=== PATIENT | female | born 1960 | race Caucasian/White ===

== ENCOUNTER 2017-08-12 12:56 | Observation (INO) ==
[2017-08-12] MEDS ORDERED: *HR* OxyCODONE Immed Rel 5 MG TABLET PO ONE (13:35)
[2017-08-12] MEDS ORDERED: *HR* OxyCODONE Immed Rel 5 MG TABLET PO PRN ×2 (15:37→20:43)
[2017-08-12] MEDS ORDERED: Ringers Solution, Lactated 1,000 ML IVC SCH ×3 (15:45→20:43)
--- NOTE | 2017-08-12 15:55 | General Surg History&Physical ---
Date of Encounter: 08/12/17 Time of Encounter: 15:10 History of Present Illness Chief complaint: Abdominal pain, incarcerated ventral incisional hernia HPI: Ms. Aldridge is a 57 year old female, transferred from [facility] after presenting to the emergency department with increased epigastric abdominal pain with an increased subcutaneous mass. This mass is incarcerated hernia related to previous cholecystectomy completed in 1997. Patient describes sudden enlargement of the subcutaneous mass over the last 2 days with increasing pain. There is been no fevers, chills, nausea, or vomiting. The hernia was not reducible in the emergency department prompting surgical referral and subsequent transfer to [facility]. Past medical history: No significant medical history; today the patient has been hypertensive but this is likely due to pain of the hernia and anxiety Scoliosis right-sided kyphosis Surgical history: Cholecystectomy, 1997; Allergies: No known drug allergies Medications: Patient takes no medications at home Social history: G1, P1; Patient admits to daily smoking; one a half packs per day for the last 30 years though recently she has reduced her intake to half a pack daily. The patient denies any alcohol or illicit drug consumption. Family history noncontributory Physical examination: Age-appropriate woman resting comfortably in her ED bed. She was transferred to [facility] and evaluated in the emergency department. Prior to my arrival, the patient was medicated with 10 mg immediate release oxycodone. The patient is 1.63 m tall; 56.245 kg, BMI 21.3 The patient is afebrile, pulse 93, respirations 18, blood pressure 157/94 to 165/97; SPO2 on room air 97% Skin: Warm, no obvious jaundice Lungs: Clear bilaterally; the kyphosis is most prominent right scapular area Cardiac: Regular rate, no appreciable murmurs Abdomen: 2 cm mass, right subxiphoid area; firm, tender, not reducible. There were no intraperitoneal findings. No intra-abdominal masses. Active bowel sounds Extremities no obvious clubbing, cyanosis, or edema. Laboratories: White count 11.5, hemoglobin 15.3, hematocrit 45.0. PT INR within normal limits. Electrolytes notable for potassium of 3.3, otherwise normal electrolytes, BUN , creatinine, normal LFTs. CT abdomen/pelvis was reviewed with [facility]: Findings include bilateral fat-containing Bochdalek hernias; moderate sized hiatal hernia; evidence of previous cholecystectomy; sigmoid diverticulosis without inflammation; fat- containing hernia anterior abdominal wall with mild nonspecific induration of the mesenteric fat. Impression: Incarcerated, epigastric ventral incisional hernia. The hernia contains only fat, with no involvement of bowel or other organs were important structures. Treatment options include surgical repair now versus repair more electively in several weeks. It is also possible to defer treatment managing the acute pain over the next several days with narcotic analgesics. Risks of surgery include hemorrhage, infection, intra-abdominal abscess, injury to adjacent organs/structures, and recurrent hernia. The patient wishes to proceed with surgical repair. The use of mesh to complete this repair was discussed in detail. The use of mesh reduces the risk of recurrence but may result in chronic pain or in the event of an infection, prevent effective treatment of that infection. The patient expressed understanding and wishes to proceed with the discussed open hernia repair with mesh. Surgical consent has been obtained. Post op care will be arranged on 3A. Past Med Surg Social Fam HX - Past Medical History Medical history: no medical history Psychiatric history: no psych history - Past Surgical History Surgical History: , cholecystectomy - Social History Smoking Status: Current every day smoker Smokeless Tobacco Status: No Alcohol use: none Drug use: none Medications and Allergies No Known Home Drugs 08/12/17 [History] 3 Allergy/AdvReac Type Severity Reaction Status Date / Time No Known Allergies Allergy Verified 08/12/17 10:31 Review of Systems All systems PM: The remainder of the systems were reviewed and are negative General Surgery Exam Initial Vital Signs Pulse Resp BP Pulse Ox 93 18 165/97 96 08/12/17 13:44 08/12/17 13:44 08/12/17 13:44 08/12/17 13:44 Results - Labs All other labs normal.
[2017-08-12] MEDS ORDERED: Albuterol 2.5 MG/3 ML NEBULIZER IH ONE (16:09)
[2017-08-12] MEDS ORDERED: Bupivacaine/EPI 1:200k 0.25%PF 10 ML VIAL INFILT ONE ×2 (16:13→17:19)
--- NOTE | 2017-08-12 16:17 | Anesthesia Evaluation PreOp ---
Date of Encounter: 08/12/17 Time of Encounter: 16:11 - Past History Planned Operation: Exploratory celiotomy, poss ventral hernia repair Cardiac History: Denies any Significant Hx Pulmonary History: Smoker, Pack/yr (45) LOGISTICS RESEARCH ENGINEER History: Denies Any Significant HX Other Medical History: Denies Any Significant HX Anesthesia History: No Prior Anesthetic Complications, Past Anesthesia ( cholecystectomy, csection) Alcohol Use: none Drug use: none Medications and Allergies No Known Home Drugs 08/12/17 [History] 3 Allergy/AdvReac Type Severity Reaction Status Date / Time No Known Allergies Allergy Verified 08/12/17 10:31 - Meds/Allergy Pre-op Review Medications Reviewed: Yes Allergies Reviewed: Yes Beta Blockers on Current Med List: No Anesthesia Results - Labs Laboratory Tests 08/12/17 08/12/17 08/12/17 11:18 11:18 11:18 WBC 11.5 H Hgb 15.3 Hct 45.0 H Plt Count 264 PT 10.3 INR 1.0 APTT 31.2 Sodium 142 Potassium 3.3 L Chloride 105 Carbon Dioxide 29 BUN 10 Creatinine 0.81 Glucose 116 H Anesthesia Exam O2 Sat Height 1.63 m Weight 56.245 kg O2 Sat by Pulse Oximetry 97 O2 Sat by Pulse Oximetry 96 Vital Signs Pulse Resp BP Pulse Ox 93 18 165/97 96 08/12/17 13:44 08/12/17 13:44 08/12/17 13:44 08/12/17 13:44 - HEENT Pupil (Motor): Pupils equal, EOMI Mallampati: II Teeth: Prosthesis Denture Type: Upper: Partial Oral Opening: Greater than 3 - LOGISTICS RESEARCH ENGINEER LOC: Oriented LOGISTICS RESEARCH ENGINEER Motor: Normal RUE, Normal LUE, Normal RLE, Normal LLE, Normal Face LOGISTICS RESEARCH ENGINEER Sensory: Normal: RUE, LUE, RLE, LLE, Face - Cardiac Rhythm: Regular - Pulmonary Breath Sounds: bilateral Clear Respiratory Effort: Symmetrical Anesthesia Assess/Plan ASA Score: 2 Modified Zapata Scale for Level of Consciousness: Cooperative, oriented, and tranquil Anesthetic Plan: General Monitoring Plan: Standard Monitors Recovery Plan: PACU
[2017-08-12] MEDS ORDERED: *HR* Succinylcholine 200 MG/10 ML VIAL IVP ONE (16:29)
[2017-08-12] MEDS ORDERED: *HR* FentaNYL (PF) 100 MCG/2 ML VIAL ONE (16:29)
[2017-08-12] MEDS ORDERED: Neostigmine Methylsulfate 3 MG/3 ML SYRINGE ONE (16:29)
[2017-08-12] MEDS ORDERED: Ondansetron 4 MG/2 ML VIAL ONE (16:29)
[2017-08-12] MEDS ORDERED: *HR* Rocuronium Bromide 50 MG/5 ML VIAL ONE (16:29)
[2017-08-12] MEDS ORDERED: Dexamethasone 4 MG/ML VIAL ONE (16:29)
[2017-08-12] MEDS ORDERED: Lidocaine -MPF 2% 2 ML VIAL ONE (16:29)
[2017-08-12] MEDS ORDERED: *HR* Propofol 200 MG/20 ML VIAL IVP ONE (16:30)
[2017-08-12] MEDS ORDERED: *HR* Midazolam HCl 2 MG/2 ML VIAL ONE (16:30)
[2017-08-12] MEDS ORDERED: Lidocaine -MPF 4% 5 ML AMPUL ONE (16:32)
[2017-08-12] MEDS ORDERED: *HR* OxyCODONE/APAP 5/325 TABLET PO PRN (17:21)
[2017-08-12] MEDS ORDERED: Ketorolac 30 MG/ML VIAL ONE (17:24)
--- NOTE | 2017-08-12 17:43 | Operative Note ---
Date of procedure: 08/12/17 Pre-op diagnosis: incarcerated epigastric ventral incisional hernia Post-op diagnosis: same Procedure: Exploratory celiotomy, resection incarcerated omentum, repair vental incisional hernia with Covidien Symbotex 10 x 15 cm composite Mesh Implants: Covidien Symbotex 15 x 10 cm Composite mesh Complications: none apparent Anesthesia: GETA Local Anesthetics: 0.25% Sensorcaine HCL with Epinephrine 1:200,000 SubQ (cc) ( 30mL) Surgeon: Cristopher Davila Was there an dairy and food laboratory assistant present: No Estimated blood loss (cc): 10 IV fluids (cc): 1,000 Specimen: hernia sac and incarcerated omentum Condition: stable Disposition: PACU Procedure in Detail: Patient was brought to the operating room where she was placed supine on the operating room table. The patient was appropriately identified as to person and procedure. The accuracy of this information was confirmed by the patient and procedure team. The patient was then intubated and anesthetized under the supervision of Dr. Emely Gomez. The abdomen was prepped and draped in usual sterile fashion. Under anesthesia, abdominal examination revealed two hernias. The symptomatic hernia for which the patient presented to the ED was approx 3 cm right of midline in the subcostal incision related to the prior open cholecystectomy. The second hernia was midline with no obvious incarcerated tissue. A midline incision was planned from xiphoid to midepigastrium. The skin was infiltrated with several milliliters of 0.25% bupivacaine with 1 200, 000 epinephrine. Skin was incised with dissection extended to the fascia. Bleeding points were controlled electrocautery. The midline hernia was entered atraumatically and resected at the fascial edges. The anterior [place] wall was elevated, exposing the hernia right of midline. The omentum prolapsing through the defect, was extracted. The tip of this omentum was hemorrhagic consistent with early ischemic findings. This portion of the omentum was resected by applying curved hemostats excising the hemorrhagic portion and ligating with interrupted 3-0 silk. The fascial defect to the right of midline measuring approximately 1 cm in diameter. The midline hernia measured approximately 3 cm in diameter. Donation of the rest the abdominal wall demonstrated no other fascial defects. I selected a Covidien Symbotex 15 x 10 cm skirted composite hernia patch to complete the repair. This hernia patch was placed subfascially with the cephalad edge near the costal margin. The skirted edges were secured to the anterior abdominal wall with Absorbatacks. Additional bupivacaine with epinephrine was infiltrated into the fascia of the anterior abdominal wall. The midline incision was then closed with interrupted [id number] 0 Vicryl and infiltrated with the bupivacaine with epinephrine solution. Subcutaneous tissue was approximated with running 3-0 Vicryl. The skin edges were approximated with subcuticular 4-0 Vicryl after infiltrating the skin edges with the bupivacaine with epinephrine solution. The incision was sealed with Dermabond dermal adhesive. The patient was taken to recovery in stable condition. Needle, sponge, and instrument counts were correct at the close of the case.
[2017-08-12] MEDS: MORPHINE SUL Oral CONC 10 MG/0.5 ML ORAL.SYG SL PRN ×2 (18:00→18:10)
[2017-08-12] MEDS ORDERED: *HR* HYDROmorphone (PF) 1 MG/ML SYRINGE IVP PRN (18:13)
--- NOTE | 2017-08-12 18:45 | Anesthesia Evaluation Post Op ---
Date of Encounter: 08/12/17 Time of Encounter: 18:43 - Vital Signs Vital Signs: Vital Signs/O2 Sat, Most Current Temp Pulse Resp BP Pulse Ox 97.9 F 79 16 131/75 96 08/12/17 18:16 08/12/17 18:26 08/12/17 18:26 08/12/17 18:26 08/12/17 18:26 - Lungs Lungs: Clear Ascult./Percussion - Airway Airway: Non-obstructed - Cardiovascular Regular Rate - Mental Status Mental Status: Alert & Oriented, Answers Appropriately - Pain Pain Scale used: Numeric (1 - 10) (tolerable) - Nausea Vomiting Nausea Vomiting: Not Present - Hydration Hydration: NPO - Discharge PostOp Status: Transfer Patient to floor
[2017-08-12] MEDS ORDERED: Acetaminophen 325 MG TABLET PO PRN (20:43)
[2017-08-12] MEDS: *HR* OxyCODONE/APAP 5/325 TABLET PO PRN (21:01)
[2017-08-13 05:17] LABS: Basophils % 0.2 %; Hematocrit 39.2 % (35.3-44.9); Hemoglobin 13.1 g/dL (11.5-15.4); Immature Granulocytes % 0.5 % (0-4); Lymphocytes # 1.2 K/mcL (0.6-4.6); Lymphocytes % 9.3 %; Mean Corpuscular HGB Conc 33.4 g/dL (31.6-35.5); Mean Corpuscular Hemoglobin 31.8 pg (28.0-33.3); Mean Corpuscular Volume 95.1 fL (83.0-100.0); Mean Platelet Volume 9.7 fL (9.4-12.4); Monocytes # 0.7 K/mcL (0.0-1.3); Monocytes % 5.2 %; Neutrophils # 11.2 K/mcL (1.6-8.9); Platelet Count 240 K/mcL (140-400); Red Blood Count 4.12 M/mcL (3.82-4.97); Red Cell Distribution Width 12.6 % (11.5-14.5); Segmented Neutrophils % 84.8 %
[2017-08-13 10:22] VITALS: BP 146/78
[2017-08-13] MEDS: *HR* OxyCODONE/APAP 5/325 TABLET PO PRN (10:33)
[2017-08-13] MEDS ORDERED: Mag Hydrox/Al Hydrox/Simeth 30 ML UDC PO ONE (12:09)
--- NOTE | 2017-08-13 12:13 | General Surgery Progress Note ---
Date of Encounter: 08/13/17 Time of Encounter: 12:05 Subjective Narrative: General Surgery - POD #1 Patient afebrile, hemodynamically stable - pulse 8791, respiratory 16, blood pressure 122/68 to 146/78 Patient complaining of incisional pain but no nausea or vomiting. Tolerating diet Lungs: Clear; acceptable inspiratory effort Cardiac: Regular rate, no appreciable murmurs Abdomen: Soft with active bowel sounds; incisional and right upper quadrant tenderness consistent with the intraoperative findings of 2 hernias - One in the midline and one 3 cm right of midline subcostal anterior abdominal wall. Minimal ecchymoses noted related to infiltration of the surgical site with local anesthetic Postoperative labs - white count 13.2, likely response to surgery and is expected to resolve without intervention Hypokalemia noted on transfer from [facility], potassium 4.0 Impression: Postoperative day 1, status post open repair ventral incisional incarcerated hernia with mesh Postoperative incisional pain otherwise patient doing well Plan: Discharge home; follow-up as outpatient approximately one week Objective Vital Signs - Last 8 Hours Temp Pulse Resp BP Pulse Ox 08/13/17 10:16 98.6 F 91 16 146/78 91 08/13/17 07:04 99.4 F 87 16 122/68 94 Intake and Output 08/12/17 08/13/17 08/13/17 23:59 07:59 15:59 Intake Total 120 / 120 700 / 700 470 / 470 Output Total 100 / 100 0 / 0 Balance 110 / 110 600 / 600 470 / 470 Intake: Oral 120 / 120 700 / 700 470 / 470 Output: Urine 100 / 100 0 / 0 Estimated Blood Loss Other: Meal Breakfast Percent of Meal Consumed 5% # Voids 1 - Labs 08/13/17 04:35 08/13/17 04:35 Diabetes panel 08/13/17 Range/Units 04:35 Potassium 4.0 (3.5-5.1) mEq/L Pituitary panel 08/13/17 Range/Units 04:35 Potassium 4.0 (3.5-5.1) mEq/L Adrenal panel 08/13/17 Range/Units 04:35 Potassium 4.0 (3.5-5.1) mEq/L - VTE Documentation of Mechanical Device: Intermittent pneumatic compression device Consult Discharge Plan - Plan Referrals: Cristopher Davila MD [Non-Partnered Physician] - 08/21/17 2:20 pm
--- NOTE | 2017-08-13 12:17 | Discharge Summary ---
Outpatient Proc Discharge Plan - Plan Additional Instructions: Patient may consume a regular diet Activity as tolerated; lifting limited to less than 20 pounds Patient may shower, wash incision with soap and water Tylenol, ibuprofen, Motrin, Advil, etc. as needed for pain Prescription for Percocet 5/325, #16, one every 6 hours as needed for pain not relieved by [id number] medications Follow-up my office, 08/21/17. Please call office to make his outpatient appointment Prescriptions: OxyCODONE/APAP 5/325 [Percocet 5/325 MG] 1 each PO Q6HR PRN 4 Days #16 tablet PRN Reason: Pain Home Medications: Acetaminophen [Tylenol] 650 mg PO Q6HR PRN tablet 08/13/17 [Rx] OxyCODONE/APAP 5/325 [Percocet 5/325 MG] 1 each PO Q6HR PRN 4 Days #16 tablet [Rx]
== END 2017-08-13 14:20 | disposition home or self-care (01) ==
LOC: 2SOUTHHOLD → 3ANU 17:02
PROVIDERS: ADMIT Surgery; ATTEND Surgery

== ENCOUNTER 2018-07-13 13:48 | Inpatient (IN) ==
[2018-07-13] MEDS ORDERED: Ondansetron 4 MG/2 ML VIAL IVP PRN (16:07)
[2018-07-13] MEDS ORDERED: Ringers Solution, Lactated 1,000 ML IVC SCH (16:30)
[2018-07-13] MEDS ORDERED: 0.9 % Sodium Chloride 1,000 ML IVC ONE (16:30)
[2018-07-13] MEDS ORDERED: Ringers Solution, Lactated 2,000 ML IVC SCH (16:47)
--- NOTE | 2018-07-13 16:48 | Internal Med History&Physical ---
Date of Encounter: 07/13/18 Time of Encounter: 16:46 Internal Medicine - H&P: HPI Chief complaint: Nausea, vomiting Admitted From: Home Plans for Post Hospital Care: Home History of present illness: Ms. Aldridge is a 58 year old female no significant past medical history except scoliosis since last 20-30 years, abdominal hernia who received treatment with prednisone for back pain and thought she had reaction to prednisone after using it for 5 days and to ER with complaint of nausea and vomiting. She has been vomiting since past 4 days and had innumerable episodes of vomiting. Denied any bloody vomitus, was brownish in color. Could not tolerate anything by mouth since Thursday. Denied any fever or abdominal pain. Denies any urinary difficulties, but noted had decreased urine output. She has not had bowel move ment or passed gas since last 3 days. Patient was evaluated at [facility] and was found to have leukocytosis, SHADI and small bowel obstruction from a right inguinal hernia. Patient was subsequently transferred to [facility] for further management. Patient received a dose of Zosyn and 1 L of normal saline. Patient had an NG tube placed as well. Patient was seen and examined on the floor. Denied any abdominal pain, fever. Without significant nausea but discomfort due to NG tube. Currently NG tube not attached to suction. A bone mention history was corroborated. Denies any chest pain or shortness of breath. Patient denies any cardiac history or history of any kidney stones or other problems. Denies history of diabetes blood pressure. She does continue to smoke half a pack a day. Denies any allergies except nausea to oxycodone and hydrocodone. Past Med Surg Social Fam HX - Past Medical History Medical history: no medical history Psychiatric history: no psych history - Past Surgical History Surgical History: , cholecystectomy - Social History Smoking Status: Current every day smoker Smokeless Tobacco Status: No Alcohol use: none Drug use: none - Additional Family History Additional family history: No known medical history except father with skin cancer Internal Medicine - H&P: Meds No Known Home Drugs 07/13/18 [History] Allergy/AdvReac Type Severity Reaction Status Date / Time No Known Allergies Allergy Verified 08/12/17 10:31 All Systems PM: A 10-system review of systems was performed and is negative for pertinent findings except as documented above in the HPI. - Constitutional Exam: Constitutional: Vitals as noted. Conversant. No Apparent Distress. Has NG tube. Eyes : Sclera white, conjunctiva clear, no lid lag, PEARLA. ENT : Grossly normal hearing. Oropharyngeal exam unremarkable. dry mucus membranes. Respiratory : Clear to auscultation bilaterally except for occasional rhonchi. No accessory muscle use, rales, rhonchi or wheezes Cardiovascular : tachycardic, +S1, +S2. no murmur, gallop, rubs. No chest wall tenderness GI/Abdominal : Soft, Non-tender, mildly distended, increased bowel sounds, soft, no peritoneal signs. incisional hernia noted above umbilicus. Rt sided inguinal hernia noted. Not painful. Musculoskeletal: Has scoliosis, no edema or cyanosis. no calf tenderness. Neurological: AO X3, CN II-XII grossly intact, grossly normal motor and sensory exam. Skin: No skin rash, lesions or ulcers noted. Pych: Good insight and judgement. Intact memory. AOx3. Internal Med - H&P Results - EKG Data -: EKG Interpreted by Myself EKG shows normal: sinus rhythm Rate: tachycardia - EKG Data Prior EKG available for review: yes When compared to previous EKG: there is no significant change - Assessment and Plan (1) Small bowel obstruction Current Visit: No Status: Acute Assessment and plan: Small bowel obstruction likely secondary to incarceration from right inguinal hernia Surgery was consulted. Inguinal hernia was reduced by Dr. hall at bedside. NG tube was removed We will continue to observe patient and keep patient nothing by mouth We will continue to keep patient on IV fluids. We will give 1.5 L bolus of normal saline and continue lactated Ringer's after. Will repeat labs. Patient is started on Zosyn however if labs are improving within stop Zosyn. (2) SHADI (acute kidney injury) Current Visit: Yes Status: Acute Assessment and plan: Most likely secondary to fluid loss from innumerable episodes of vomiting Patient clinically dehydrated as well We will keep patient on IV fluids with 1.5 L bolus and LR after Zofran for nausea, vomiting Strict I/O and avoid nephrotoxic medications including NSAIDS. Will use IV tylenol if significant pain. (3) Leukocytosis Current Visit: Yes Status: Acute Assessment and plan: Possibly reactive from SBO as well as with recent steroid use However will continue Zosyn and follow up repeat labs If patient remains afebrile and has significant improvement in her labs we will stop Zosyn Qualifiers: Leukocytosis type: unspecified Qualified Code(s): D72.829 - Elevated white blood cell count, unspecified (4) Hypokalemia Current Visit: Yes Status: Acute Assessment and plan: Likely related to vomiting along with hyponatremia and hypercalcemia We will replete potassium and continue IV fluids Hyperkalemia likely related to dehydration. (5) Hypercalcemia Current Visit: Yes Status: Acute (6) Hyponatremia Current Visit: Yes Status: Acute - Time Spent With Patient Total time spent is greater than 50% in coordination of care (as documented) at patient's floor/unit and/or counseling patient:
[2018-07-13] MEDS ORDERED: 0.9 % Sodium Chloride 500 ML IVC ONE (17:16)
[2018-07-13 17:26] LABS: Calcium 10.1 mg/dL (8.6-10.3); Potassium 3.7 mEq/L (3.5-5.1)
--- NOTE | 2018-07-13 17:55 | General Surgery Consult Note ---
Date of Encounter: 07/13/18 Time of Encounter: 17:00 History of Present Illness Consult date: 07/13/18 Requesting physician: Shweta David History of present illness: 58-year-old female transferred from [facility] after presenting there with a 3 day history of nausea, vomiting, and constipation. Last reported bowel movement was 3 days ago. The patient presents with concern that she is experiencing an allergic reaction to recently prescribed steroids. She is unable to keep any fluids down. Labs demonstrated a white count of 23.3 with hemoglobin 17.6, hematocrit 49.9; differential with 20.[address] abdomen and pelvis demonstrated dilated proximal loops small bowel with decompression of the more distal loops. A small right inguinal hernia appeared to be the site of the SBO. There is also a ventral incisional hernia in the upper/subxiphoid anterior abdominal wall. The patient was transferred to [facility] for further evaluation and care. Past medical history: Is fairly unremarkable except for recent steroid therapy for back pain. Surgical history: Cholecystectomy, 1997; ; exploratory celiotomy, resection of incarcerated omentum and repair of ventral incisional hernia using Covidien 10 x 15 cm composite mesh, 08/12/17. Allergies: No known drug allergies, however, patient believed her symptoms were due to an allergic response to steroids (prednisone) Medications: The patient recently completed a course of prednisone; does not take routine home meds Social history: Patient is G1, P1; she continues to smoke admitting to half a pack daily for the last 30 years. The patient denies any alcohol or illicit drug use. Family history: Noncontributory Physical examination: 58-year-old, who appears to be older than her stated age, in no acute distress. She denies abdominal pain. NG tube had been placed, scant bilious fluid is noted in the reservoir The patient has been afebrile, 98.3; pulse 102-112, respirations 18-19; blood pressure on arrival [facility], 116/80. Skin: Warm without obvious jaundice Lungs: Clear bilaterally significant kyphoscoliosis noted Cardiac: Rapid rate without detected murmurs Abdomen: Soft, nontender. Active bowel sounds. A soft, nontender, reducible ventral incisional hernia evident subxiphoid anterior abdominal wall, at the cephalad pole of a midline incision. The remainder of the midline incision appears intact with no detected fascial defects. No intra-abdominal masses. No rebound. A nontender hard nodular density right groin, lateral to the pubic tubercle. With manipulation this was reduced without significant difficulty or discomfort on the patient's part. Bowel sounds were active. Extremities: No obvious clubbing, cyanosis, or edema. Laboratories: WBC 23.3, possibly due to steroids as well as significant dehydration evidenced by hemoconcentration (hemoglobin 17.6, hematocrit 49.9). Sodium 132, potassium 3.4, chloride 74, BUN 76, creatinine 2.68 (in August 2017, BUN was 10, creatinine 0.81) Lactic acid 1.8; LFTs within normal limits; calcium 10.8 - again likely reflective of the significant dehydration Urinalysis notable for specific gravity greater than 1.030, pH 5.0; protein 100, ketones 15; 0-3 RBC/hpf; 3-5 WBC/hpf CT: Reviewed with [place] [facility] Impression: 58-year-old, approximately 1 year status post exploratory celiotomy with resection of incarcerated omentum and repair of ventral incisional hernia using Covidien 10 x 15 cm composite mesh, transferred to [facility] for evaluation and treatment of a small bowel obstruction secondary to an incarcerated right inguinal hernia. I was able to reduce this hernia by manual manipulation. The patient is markedly dehydrated with significant electrolyte abnormalities. Recommendations: Discontinue NG Maintain NPO except for meds with sips water - diet in AM if no further N/V aggressive rehydration and correction electrolyte abnormalities once medically stable; surgical repair right inguinal hernia Thank you for this consultation. I will follow along with you. Past Med Surg Social Fam HX - Past Medical History Medical history: no medical history Psychiatric history: no psych history - Past Surgical History Surgical History: , cholecystectomy - Social History Smoking Status: Current every day smoker Packs per day: 0.5 Smokeless Tobacco Status: No Alcohol use: none Drug use: none Medications and Allergies No Known Home Drugs 07/13/18 [History] Allergy/AdvReac Type Severity Reaction Status Date / Time No Known Allergies Allergy Verified 08/12/17 10:31 Review of Systems All systems PM: The remainder of the systems were reviewed and are negative General Surgery Exam Initial Vital Signs Temp Pulse Resp BP Pulse Ox 98.3 F 112 19 116/80 90 07/13/18 17:00 07/13/18 17:00 07/13/18 17:00 07/13/18 17:00 07/13/18 17:00 Exam Initial Vital Signs Temp Pulse Resp BP Pulse Ox 98.3 F 112 19 116/80 90 07/13/18 17:00 07/13/18 17:00 07/13/18 17:00 07/13/18 17:00 07/13/18 17:00 Results - Labs 07/13/18 16:53 Abnormal lab results Chloride 80 mEq/L (98-107) L 07/13/18 16:53 Carbon Dioxide 40 mEq/L (23-29) H* 07/13/18 16:53 BUN 88 mg/dL (6-20) H 07/13/18 16:53 Creatinine 2.49 mg/dL (0.60-1.20) H 07/13/18 16:53 Est GFR ( Amer) 24 (> 60) L 07/13/18 16:53 Est GFR (Non-Af Amer) 20 (> 60) L 07/13/18 16:53 BUN/Creatinine Ratio 35 (6-26) H 07/13/18 16:53 Glucose 177 mg/dL (70-105) H 07/13/18 16:53 Calculated Osmolality 313 (280-300) H 07/13/18 16:53 Diabetes panel 07/13/18 Range/Units 16:53 Sodium 136 (136-145) mEq/L Potassium 3.7 (3.5-5.1) mEq/L Chloride 80 L (98-107) mEq/L Carbon Dioxide 40 H* (23-29) mEq/L BUN 88 H (6-20) mg/dL Creatinine 2.49 H (0.60-1.20) mg/dL Glucose 177 H (70-105) mg/dL Calcium 10.1 (8.6-10.3) mg/dL Calcium panel 07/13/18 Range/Units 16:53 Calcium 10.1 (8.6-10.3) mg/dL Pituitary panel 07/13/18 Range/Units 16:53 Sodium 136 (136-145) mEq/L Potassium 3.7 (3.5-5.1) mEq/L Chloride 80 L (98-107) mEq/L Carbon Dioxide 40 H* (23-29) mEq/L BUN 88 H (6-20) mg/dL Creatinine 2.49 H (0.60-1.20) mg/dL Glucose 177 H (70-105) mg/dL Calcium 10.1 (8.6-10.3) mg/dL Adrenal panel 07/13/18 Range/Units 16:53 Sodium 136 (136-145) mEq/L Potassium 3.7 (3.5-5.1) mEq/L Chloride 80 L (98-107) mEq/L Carbon Dioxide 40 H* (23-29) mEq/L BUN 88 H (6-20) mg/dL Creatinine 2.49 H (0.60-1.20) mg/dL Glucose 177 H (70-105) mg/dL Calcium 10.1 (8.6-10.3) mg/dL All other labs normal. Consult Discharge Plan - Plan Referrals: NONE,PCP [Primary Care Provider] -
[2018-07-13] MEDS: Nicotine 7 MG PATCH.TD24 TD SCH (18:23)
[2018-07-13 18:34] LABS: Basophils % 0.1 %; Eosinophils % 0.1 %; Hematocrit 42.5 % (35.3-44.9); Hemoglobin 14.3 g/dL (11.5-15.4); Immature Granulocytes % 0.3 % (0-4); Lymphocytes # 0.5 K/mcL (0.6-4.6); Lymphocytes % 3.3 %; Mean Corpuscular HGB Conc 33.6 g/dL (31.6-35.5); Mean Corpuscular Hemoglobin 31.2 pg (28.0-33.3); Mean Corpuscular Volume 92.8 fL (83.0-100.0); Mean Platelet Volume 9.7 fL (9.4-12.4); Monocytes # 1.6 K/mcL (0.0-1.3); Platelet Count 326 K/mcL (140-400); Red Blood Count 4.58 M/mcL (3.82-4.97); Red Cell Distribution Width 12.6 % (11.5-14.5); Segmented Neutrophils % 86.2 %
[2018-07-13] MEDS: Ringers Solution, Lactated 2,000 ML IVC SCH (19:50)
[2018-07-14] MEDS: Piperacillin/Tazobactam 3.375 GM in 0.9 % Sodium Chloride Mini Bag 100 ML IVPB SCH ×3 (01:01→16:14)
[2018-07-14 08:02] LABS: Basophils % 0.1 %; Eosinophils # 0.1 K/mcL (0.0-0.6); Eosinophils % 1.2 %; Hematocrit 38.1 % (35.3-44.9); Hemoglobin 12.8 g/dL (11.5-15.4); Immature Granulocytes % 0.4 % (0-4); Lymphocytes # 1.1 K/mcL (0.6-4.6); Lymphocytes % 11.4 %; Mean Corpuscular HGB Conc 33.6 g/dL (31.6-35.5); Mean Corpuscular Hemoglobin 31.5 pg (28.0-33.3); Mean Corpuscular Volume 93.8 fL (83.0-100.0); Mean Platelet Volume 9.4 fL (9.4-12.4); Monocytes % 9.6 %; Neutrophils # 7.8 K/mcL (1.6-8.9); Platelet Count 257 K/mcL (140-400); Red Blood Count 4.06 M/mcL (3.82-4.97); Red Cell Distribution Width 12.8 % (11.5-14.5); Segmented Neutrophils % 77.3 %
--- NOTE | 2018-07-14 08:15 | Internal Med Progress Note ---
<Obi Barr - Last Filed: 07/14/18 14:26> Hospitalist Progress Note - Encounter Date of Encounter: 07/14/18 Time of Encounter: 10:00 - Subjective Interval History: No acute events overnight. Patient's right inguinal hernia was reduced by surgery. NG tube was removed. Patient is tolerating her clear liquid diet. Sh micah reports having 4 bowel movements in the past 24 hours. Patient also is seen having 4 L oxygen. She is not on oxygen at home. She reports having a lot of cough and sputum production before admission. She has been afebrile and her leukocytosis has resolved. - Exam Vitals: Temp Pulse Resp BP Pulse Ox 98.6 F 94 14 116/72 88 07/14/18 07:08 07/14/18 07:08 07/14/18 07:08 07/14/18 07:08 07/14/18 07:08 Exam: General: pleasant, without distress HEENT: Head atraumatic, normocephalic, EOMI, PERRL, absent ear discharge or trauma, Moist Mucous Membranes, uvula midline Neck: nontender to palpation, absent lymphadenopathy, Cardiovascualr: Regular rate and rhythm with no murmur, absent gallops or rubs, absent pedal edema, radial pulses 2 out of 4 Lungs: Clear to auscultation bilaterally, not in respiratory distress Abdomen: Soft nontender, nondistended positive bowel sounds, absent hepatomegaly. Right inguinal hernia, mid abdominal hernia Skin: warm and dry, absent rash, absent open wounds and nodules MSK: absent clubbing, cyanosis, joints without swelling Neuro: Alert oriented 3, no focal deficits Psych: good insight and judgment, - Assessment and Plan (1) Acute respiratory failure with hypoxia Current Visit: Yes Status: Acute Assessment and Plan: Patient is requiring 4 L oxygenation Unclear etiology. may have aspiration pna 2nd to vomiting She does not have a history of COPD, Or CHF. She is euvolemic on exam Chest x-ray within normal limits on admission. We will obtain a CTA of the chest On admission patient was on Zosyn will continue Blood cultures taken on admission are pending. Respiratory infectious panel, urine Legionella and Streptococcus pneumoniae antigens, (2) Small bowel obstruction Current Visit: Yes Status: Resolved Assessment and Plan: Resolved Secondary to incarcerated right inguinal hernia as seen on CT abdomen pelvis Continue clear liquid diets and will advance diet as tolerated. We will continue IV fluids as patient's by mouth intake is still poor Continue Zofran for nausea. Appreciate surgery recommendations. Plan for surgical repair once medically stable. (3) SHADI (acute kidney injury) Current Visit: Yes Status: Resolved Assessment and Plan: Resolved. Continue monitor. (4) Hypokalemia Current Visit: Yes Status: Resolved Assessment and Plan: Resolved - Time Spent with Patient Total time spent is greater than 50% in coordination of care (as documented) at patient's floor/unit and/or counseling patient: Internal Medicine: Result - Labs CBC & Chem 7: 07/14/18 04:00 07/14/18 04:00 Labs: Short CBC 07/13/18 07/14/18 Range/Units 18:01 04:00 WBC 16.2 H 10.0 (4.3-11.1) K/mcL Hgb 14.3 D 12.8 D (11.5-15.4) g/dL Hct 42.5 38.1 (35.3-44.9) % Plt Count 326 257 (140-400) K/mcL Neutrophils # 14.0 H 7.8 (1.6-8.9) K/mcL BMP 07/13/18 16:53 Sodium 136 Potassium 3.7 Chloride 80 L Carbon Dioxide 40 H* BUN 88 H Creatinine 2.49 H Glucose 177 H Calcium 10.1 Consult Discharge Plan - Plan Referrals: Rhett Parekh MD [Partnered Physician] - <Derek Benton - Last Filed: 07/14/18 15:51> Hospitalist Progress Note - Encounter Date of Encounter: 07/14/18 - Exam Vitals: Temp Pulse Resp BP Pulse Ox 98.7 F 89 15 133/83 90 07/14/18 14:52 07/14/18 14:52 07/14/18 14:52 07/14/18 14:52 07/14/18 14:52 - Assessment and Plan (1) Small bowel obstruction Current Visit: Yes Status: Resolved (2) SHADI (acute kidney injury) Current Visit: Yes Status: Resolved (3) Leukocytosis Current Visit: Yes Status: Acute (4) Hypokalemia Current Visit: Yes Status: Resolved (5) Hypercalcemia Current Visit: Yes Status: Acute (6) Hyponatremia Current Visit: Yes Status: Acute - Time Spent with Patient Total time spent is greater than 50% in coordination of care (as documented) at patient's floor/unit and/or counseling patient: Internal Medicine: Result - Labs CBC & Chem 7: 07/14/18 04:00 07/14/18 04:00 Labs: Short CBC 07/13/18 07/14/18 Range/Units 18:01 04:00 WBC 16.2 H 10.0 (4.3-11.1) K/mcL Hgb 14.3 D 12.8 D (11.5-15.4) g/dL Hct 42.5 38.1 (35.3-44.9) % Plt Count 326 257 (140-400) K/mcL Neutrophils # 14.0 H 7.8 (1.6-8.9) K/mcL BMP 07/13/18 07/14/18 16:53 04:00 Sodium 136 137 Potassium 3.7 3.5 Chloride 80 L 96 L Carbon Dioxide 40 H* 34 H BUN 88 H 51 H Creatinine 2.49 H 1.06 Glucose 177 H 106 H Calcium 10.1 8.4 L - Impressions Impressions Chest CTA 07/14/18 14:35 IMPRESSION: 1. No evidence of acute pulmonary embolism centrally or peripherally. 2. Bilateral lower lobe atelectatic changes. 3. Significant emphysema worse in the upper lobes. 4. Severe scoliotic deformity. 5. Moderate hiatal hernia. D/ / 07/14/2018 15:40:16 Eli Hairston MD / daylin Interpreting Provider: Eli Hairston MD - Attending Attestation I have seen and independently assessed this patient and I agree with plan as documented above Plan Acute hypoxic respiratory failure. Unclear etiology. patient does not wear oxygen at home and has been needing up to 4L of oxygen here. CXR was uremarkab le. Obtain CTA chest to r/o acute PE Smal bowel obstruction. s/p manula reduction of inguinal hernia. Diet advanced to clear liquids. Further surgical intervention per surgery <Derek Benton - Last Filed: 07/14/18 15:51> (3) Leukocytosis Qualifiers: Leukocytosis type: unspecified Qualified Code(s): D72.829 - Elevated white blood cell count, unspecified
[2018-07-14 08:23] LABS: BUN/Creatinine Ratio 48 (6-26); Blood Urea Nitrogen 51 mg/dL (6-20); Calcium 8.4 mg/dL (8.6-10.3); Carbon Dioxide 34 mEq/L (23-29); Chloride 96 mEq/L (98-107); Glucose 106 mg/dL (70-105); Osmolality,Calculated 298 (280-300); Potassium 3.5 mEq/L (3.5-5.1); Sodium 137 mEq/L (136-145); eGFR For Non-African Americans 53 (> 60)
[2018-07-14] MEDS: Nicotine 7 MG PATCH.TD24 TD SCH (09:25)
[2018-07-14] MEDS: Pantoprazole 40 MG VIAL IVP SCH (11:15)
[2018-07-14] MEDS ORDERED: Isovue-370 500 ML BOTTLE IVP ONE (14:35)
[2018-07-14 17:25] LABS: Adenovirus Not Detected (Not Detect); Bordetella Pertussis Not Detected (Not Detect); Chlamydophila pneumoniae Not Detected (Not Detect); Coronavirus 229E Not Detected (Not Detect); Coronavirus HKU1 Not Detected (Not Detect); Coronavirus NL63 Not Detected (Not Detect); Coronavirus OC43 Not Detected (Not Detect); Human Metapneumovirus Not Detected (Not Detect); Human Rhinovirus/Enterovirus Not Detected (Not Detect); Influenza A Subtype 2009 H1 Not Detected (Not Detect); Influenza A Untypeable Not Detected (Not Detect); Influenza B Not Detected (Not Detect); Mycoplasma pneumoniae Not Detected (Not Detect); Parainfluenza Virus 1 Not Detected (Not Detect); Parainfluenza Virus 2 Not Detected (Not Detect); Parainfluenza Virus 3 Not Detected (Not Detect); Parainfluenza Virus 4 Not Detected (Not Detect); Respiratory Syncytial Virus Not Detected (Not Detect)
--- NOTE | 2018-07-14 17:44 | General Surgery Progress Note ---
Date of Encounter: 07/14/18 Time of Encounter: 17:33 Subjective Patient reports: feels better, flatus, diarrhea Narrative: General Surgery Patient feeling much improved; no further nausea or vomiting. Patient afebrile, 98.7, pulse 89-92 and regular; RR14-15; BP 133/83 O2 saturations reported approximately 96 when patient is off O2. History of significant tobacco use and kyphosis a likely source for this hypoxia Abdomen: Soft, nontender. Reducible, nontender epigastric ventral incisional hernia at the cephalad pole of the midline incision. Right inguinal hernia is nontender without recurrent prolapse tissue/incarcerated hernia Active bowel sounds. Patient tolerating diet, describes passing copious flatus and is experiencing diarrhea. Clinically the bowel obstruction is resolved Laboratories: Leukocytosis has resolved, currently 10.0. Neutrophils are returned to normal. Hemoglobin 12.8, hematocrit 38.1 reflecting rehydration. Electrolytes notable for potassium borderline at 3.5. Bicarbonate is elevated at 34, BUN has improved from 88 to 51; Cr 2.49 improved to 1.06 Impression: Small bowel obstruction secondary to incarcerated right inguinal hernia. Resolved with reduction of the carcinoid tissue. Severe dehydration secondary to the small bowel obstruction with several days nausea vomiting. - Significantly improve with resolution of the nausea vomiting and rehydration Newly diagnosed hypoxia likely emphysema/COPD. Discussed briefly with Dr. Benton Stable ventral incisional hernia epigastric anterior abdominal wall. Recommendations: Continue IV fluids Advance diet Discontinue antibiotics. Objective Vital Signs - Last 8 Hours Temp Pulse Resp BP Pulse Ox 07/14/18 14:52 98.7 F 89 15 133/83 90 07/14/18 11:13 98.9 F 92 14 143/86 91 Intake and Output 07/14/18 07/14/18 07/14/18 07:59 15:59 23:59 Intake Total 100 / 100 100 / 100 Output Total 1300 / 1300 550 / 550 Balance -1200 / -1200 -450 / -450 Intake: IV Fluids 100 / 100 100 / 100 Zosyn 3.375 GM In 0.9 % Sodium 100 / 100 100 / 100 Chloride (Mini-Bag +) 100 ML @ 25 mls/hr IVPB Q8HR DEANGELO Rx#: [id number] Output: Catheter 1300 / 1300 550 / 550 Other: # Bowel Movements 2 Weight 54.5 kg Blood Glucose* 104 Patient Weight 07/14/18 23:59 Weight 54.5 kg - Labs 07/14/18 04:00 07/14/18 04:00 Diabetes panel 07/14/18 Range/Units 04:00 Sodium 137 (136-145) mEq/L Potassium 3.5 (3.5-5.1) mEq/L Chloride 96 L (98-107) mEq/L Carbon Dioxide 34 H (23-29) mEq/L BUN 51 H (6-20) mg/dL Creatinine 1.06 (0.60-1.20) mg/dL Glucose 106 H (70-105) mg/dL Calcium 8.4 L (8.6-10.3) mg/dL Calcium panel 07/14/18 Range/Units 04:00 Calcium 8.4 L (8.6-10.3) mg/dL Pituitary panel 07/14/18 Range/Units 04:00 Sodium 137 (136-145) mEq/L Potassium 3.5 (3.5-5.1) mEq/L Chloride 96 L (98-107) mEq/L Carbon Dioxide 34 H (23-29) mEq/L BUN 51 H (6-20) mg/dL Creatinine 1.06 (0.60-1.20) mg/dL Glucose 106 H (70-105) mg/dL Calcium 8.4 L (8.6-10.3) mg/dL Adrenal panel 07/14/18 Range/Units 04:00 Sodium 137 (136-145) mEq/L Potassium 3.5 (3.5-5.1) mEq/L Chloride 96 L (98-107) mEq/L Carbon Dioxide 34 H (23-29) mEq/L BUN 51 H (6-20) mg/dL Creatinine 1.06 (0.60-1.20) mg/dL Glucose 106 H (70-105) mg/dL Calcium 8.4 L (8.6-10.3) mg/dL Consult Discharge Plan - Plan Referrals: Rhett Parekh MD [Partnered Physician] -
[2018-07-14 20:33] LABS: ABG Base Excess 7 mEq/L (-2 to 3); ABG HCO3 31 mEq/L (21-27); ABG Oxygen Saturation 98 % (95-98); ABG PCO2 45 mmHg (35-45); ABG PH 7.46 pH Units (7.32-7.45); ABG PO2 92 mmHg (85-104); ABG TCO2 33 mEq/L (20-26)
[2018-07-14] MEDS: Ringers Solution, Lactated 2,000 ML IVC SCH (22:27)
[2018-07-14] MEDS ORDERED: traMADol 50 MG TABLET PO ONE (22:41)
[2018-07-15 05:43] LABS: Basophils % 0.1 %; Eosinophils # 0.3 K/mcL (0.0-0.6); Eosinophils % 2.7 %; Hematocrit 35.2 % (35.3-44.9); Hemoglobin 11.7 g/dL (11.5-15.4); Immature Granulocytes % 0.5 % (0-4); Lymphocytes # 1.7 K/mcL (0.6-4.6); Lymphocytes % 14.3 %; Mean Corpuscular HGB Conc 33.2 g/dL (31.6-35.5); Mean Corpuscular Hemoglobin 31.7 pg (28.0-33.3); Mean Corpuscular Volume 95.4 fL (83.0-100.0); Mean Platelet Volume 9.7 fL (9.4-12.4); Monocytes % 8.9 %; Neutrophils # 8.6 K/mcL (1.6-8.9); Platelet Count 242 K/mcL (140-400); Red Blood Count 3.69 M/mcL (3.82-4.97); Red Cell Distribution Width 12.8 % (11.5-14.5); Segmented Neutrophils % 73.5 %
[2018-07-15 06:01] LABS: BUN/Creatinine Ratio 36 (6-26); Blood Urea Nitrogen 24 mg/dL (6-20); Calcium 8.3 mg/dL (8.6-10.3); Carbon Dioxide 32 mEq/L (23-29); Chloride 103 mEq/L (98-107); Glucose 99 mg/dL (70-105); Osmolality,Calculated 288 (280-300); Potassium 3.5 mEq/L (3.5-5.1); Sodium 137 mEq/L (136-145); eGFR For Non-African Americans > 60 (> 60)
[2018-07-15] MEDS: Pantoprazole 40 MG VIAL IVP SCH (09:22)
[2018-07-15] MEDS: Nicotine 7 MG PATCH.TD24 TD SCH (09:22)
--- NOTE | 2018-07-15 13:14 | General Surgery Progress Note ---
Date of Encounter: 07/15/18 Time of Encounter: 13:11 Subjective Patient reports: no new complaints, feels better Narrative: General Surgery - Patient feeling well; voicing no abdominal complaints. No recurrent abdominal pain, nausea or vomiting. Tolerating diet. Abdomen: Soft, nontender. Stable reducible nontender epigastric ventral incisional hernia. Right inguinal hernia without tenderness or recurrent prolapsing or incarcerated tissue. Patient complaining of back pain - long-standing kyphoscoliosis Impression: Small bowel obstruction secondary to incarcerated right inguinal hernia. Resolved. Stable ventral incisional hernia. New diagnosis emphysema/COPD due to prolonged history of tobacco use. Patient is a current, active smoker. Recommendations: Outpatient surgical follow-up once pulmonary status has been stabilized Objective Vital Signs - Last 8 Hours Temp Pulse Resp BP Pulse Ox 07/15/18 11:41 99.1 F 88 14 119/75 97 07/15/18 08:05 98.6 F 73 16 116/74 95 Intake and Output 07/14/18 07/15/18 07/15/18 23:59 07:59 15:59 Other: Stool Size Small Stool Consistency liquid # Voids 1 - Labs 07/15/18 05:01 07/15/18 05:01 Diabetes panel 07/15/18 Range/Units 05:01 Sodium 137 (136-145) mEq/L Potassium 3.5 (3.5-5.1) mEq/L Chloride 103 (98-107) mEq/L Carbon Dioxide 32 H (23-29) mEq/L BUN 24 H (6-20) mg/dL Creatinine 0.67 (0.60-1.20) mg/dL Glucose 99 (70-105) mg/dL Calcium 8.3 L (8.6-10.3) mg/dL Calcium panel 07/15/18 Range/Units 05:01 Calcium 8.3 L (8.6-10.3) mg/dL Pituitary panel 07/15/18 Range/Units 05:01 Sodium 137 (136-145) mEq/L Potassium 3.5 (3.5-5.1) mEq/L Chloride 103 (98-107) mEq/L Carbon Dioxide 32 H (23-29) mEq/L BUN 24 H (6-20) mg/dL Creatinine 0.67 (0.60-1.20) mg/dL Glucose 99 (70-105) mg/dL Calcium 8.3 L (8.6-10.3) mg/dL Adrenal panel 07/15/18 Range/Units 05:01 Sodium 137 (136-145) mEq/L Potassium 3.5 (3.5-5.1) mEq/L Chloride 103 (98-107) mEq/L Carbon Dioxide 32 H (23-29) mEq/L BUN 24 H (6-20) mg/dL Creatinine 0.67 (0.60-1.20) mg/dL Glucose 99 (70-105) mg/dL Calcium 8.3 L (8.6-10.3) mg/dL Consult Discharge Plan - Plan Referrals: Rhett Parekh MD [Partnered Physician] -
--- NOTE | 2018-07-15 14:00 | Internal Med Progress Note ---
<Obi Barr - Last Filed: 07/15/18 13:58> Hospitalist Progress Note - Encounter Date of Encounter: 07/15/18 Time of Encounter: 09:00 - Subjective Interval History: No acute events overnight. Patient reports she is tolerating her diet. She is continuing to require 4 L oxygen. She does report she is a chronic smoker. She denies any history of COPD, pneumonia in the past. Patient is crying in the room. She is afraid she will not be able to afford all her new medications. I discussed with patient that we will see if social work can help her with her financial issues. - Exam Vitals: Temp Pulse Resp BP Pulse Ox 99.1 F 88 14 119/75 97 07/15/18 11:41 07/15/18 11:41 07/15/18 11:41 07/15/18 11:41 07/15/18 11:41 Exam: General: pleasant, without distress Cardiovascualr: Regular rate and rhythm with no murmur, absent gallops or rubs, absent pedal edema, radial pulses 2 out of 4 Lungs: Clear to auscultation bilaterally, not in respiratory distress Abdomen: Soft nontender, nondistended positive bowel sounds, absent hepatomegaly. Right inguinal hernia, mid abdominal hernia Skin: warm and dry, absent rash, absent open wounds and nodules MSK: absent clubbing, cyanosis, joints without swelling Neuro: Alert oriented 3, no focal deficits Psych: good insight and judgment, - Assessment and Plan (1) Acute respiratory failure with hypoxia Current Visit: Yes Status: Acute Assessment and Plan: Secondary to COPD exacerbation Continue oxygen supplementation CTA showed bilateral upper lobe emphysematous changes. Patient is a chronic smoker and likely has underlying COPD that has not been diagnosed. (2) COPD exacerbation Current Visit: Yes Status: Acute Assessment and Plan: This started patient on steroids and DuoNeb's Symbicort., Plan is to wean down her oxygen level. On discharge patient will need nebulizer, Symbicort inhaler, oxygen, albuterol inhaler. (3) Small bowel obstruction Current Visit: Yes Status: Resolved Assessment and Plan: Resolved. Follow-up with surgery outpatient. Patient will have outpatient elective repair as per surgery. - Time Spent with Patient Total time spent is greater than 50% in coordination of care (as documented) at patient's floor/unit and/or counseling patient: Internal Medicine: Result - Labs CBC & Chem 7: 07/15/18 05:01 07/15/18 05:01 Labs: Short CBC 07/15/18 Range/Units 05:01 WBC 11.7 H (4.3-11.1) K/mcL Hgb 11.7 (11.5-15.4) g/dL Hct 35.2 L (35.3-44.9) % Plt Count 242 (140-400) K/mcL Neutrophils # 8.6 (1.6-8.9) K/mcL BMP 07/15/18 05:01 Sodium 137 Potassium 3.5 Chloride 103 Carbon Dioxide 32 H BUN 24 H Creatinine 0.67 Glucose 99 Calcium 8.3 L - ABG Interpretation ABG results: ABG ABG pH 7.46 pH Units (7.32-7.45) H 07/14/18 20:31 ABG pCO2 45 mmHg (35-45) 07/14/18 20:31 ABG pO2 92 mmHg (85-104) 07/14/18 20:31 ABG O2 Saturation 98 % (95-98) 07/14/18 20:31 - Impressions Impressions Chest CTA 07/14/18 14:35 IMPRESSION: 1. No evidence of acute pulmonary embolism centrally or peripherally. 2. Bilateral lower lobe atelectatic changes. 3. Significant emphysema worse in the upper lobes. 4. Severe scoliotic deformity. 5. Moderate hiatal hernia. D/ : / 07/14/2018 15:40:16 Eli Hairston MD / [place] Interpreting Provider: Eli Hairston MD Consult Discharge Plan - Plan Referrals: Rhett Parekh MD [Partnered Physician] - <Derek Benton - Last Filed: 07/15/18 16:10> Hospitalist Progress Note - Encounter Date of Encounter: 07/15/18 - Exam Vitals: Temp Pulse Resp BP Pulse Ox 99 F 83 16 107/65 94 07/15/18 14:56 07/15/18 14:56 07/15/18 15:49 07/15/18 14:56 07/15/18 15:49 - Assessment and Plan (1) Small bowel obstruction Current Visit: Yes Status: Resolved (2) SHADI (acute kidney injury) Current Visit: Yes Status: Resolved (3) Leukocytosis Current Visit: Yes Status: Acute (4) Hypokalemia Current Visit: Yes Status: Resolved (5) Hypercalcemia Current Visit: Yes Status: Acute (6) Hyponatremia Current Visit: Yes Status: Acute - Time Spent with Patient Total time spent is greater than 50% in coordination of care (as documented) at patient's floor/unit and/or counseling patient: Internal Medicine: Result - Labs CBC & Chem 7: 07/15/18 05:01 07/15/18 05:01 Labs: Short CBC 07/15/18 Range/Units 05:01 WBC 11.7 H (4.3-11.1) K/mcL Hgb 11.7 (11.5-15.4) g/dL Hct 35.2 L (35.3-44.9) % Plt Count 242 (140-400) K/mcL Neutrophils # 8.6 (1.6-8.9) K/mcL BMP 07/15/18 05:01 Sodium 137 Potassium 3.5 Chloride 103 Carbon Dioxide 32 H BUN 24 H Creatinine 0.67 Glucose 99 Calcium 8.3 L - ABG Interpretation ABG results: ABG ABG pH 7.46 pH Units (7.32-7.45) H 07/14/18 20:31 ABG pCO2 45 mmHg (35-45) 07/14/18 20:31 ABG pO2 92 mmHg (85-104) 07/14/18 20:31 ABG O2 Saturation 98 % (95-98) 07/14/18 20:31 - Attending Attestation I have seen and independently assessed this patient and I agree with plan as documented above Plan Acute hypoxic respiratory failure 2/2 to COPD exacerbation. CTA chest showed bilateral emphysema. Started on steroids and nebs. Will need nebs, and steroid taper and home oxygen on discharge Smal bowel obstruction. s/p manula reduction of inguinal hernia. Diet advanced to regular. Outpatient follow up with surgery <Derek Benton - Last Filed: 07/15/18 16:10> (3) Leukocytosis Qualifiers: Leukocytosis type: unspecified Qualified Code(s): D72.829 - Elevated white blood cell count, unspecified
[2018-07-15] MEDS: Budesonide/Formoterol 160/4.5 1 PUFF INH IH SCH ×2 (15:45→19:53)
[2018-07-15] MEDS: Ipratropium/Albuterol Neb 3 ML IH SCH ×3 (15:47→19:53)
[2018-07-15] MEDS: predniSONE 20 MG TABLET PO SCH (17:31)
[2018-07-15] MEDS: Ringers Solution, Lactated 2,000 ML IVC SCH (17:32)
[2018-07-16] MEDS: Ipratropium/Albuterol Neb 3 ML IH SCH ×4 (00:04→11:25)
[2018-07-16] MEDS ORDERED: traMADol 50 MG TABLET PO ONE (00:26)
[2018-07-16] MEDS: Ringers Solution, Lactated 2,000 ML IVC SCH (05:27)
[2018-07-16] MEDS: Budesonide/Formoterol 160/4.5 1 PUFF INH IH SCH (07:17)
[2018-07-16] MEDS: predniSONE 20 MG TABLET PO SCH (09:17)
[2018-07-16] MEDS: Nicotine 7 MG PATCH.TD24 TD SCH (09:18)
[2018-07-16 10:14] VITALS: BP 135/84
--- NOTE | 2018-07-16 11:09 | Discharge Summary ---
Date of Encounter: 07/16/18 Time of Encounter: 11:00 - Discharge Diagnosis (1) Small bowel obstruction Priority: Primary Status: Resolved Assessment and Plan: 58 year old female no significant past medical history except scoliosis since last 20-30 years, abdominal hernia who received treatment with prednisone for back pain and thought she had reaction to prednisone after using it for 5 days and to ER with complaint of nausea and vomiting. She has been vomiting since past 4 days and had innumerable episodes of vomiting. Denied any bloody vomitus, was brownish in color. Could not tolerate anything by mouth since Thursday. Denied any fever or abdominal pain. Denies any urinary difficulties, but noted had decreased urine output. She has not had bowel movement or passed gas since last 3 days. Patient was evaluated at [place] [facility] and was found to have leukocytosis, SHADI and small bowel obstruction from a right inguinal hernia. Patient was subsequently transferred to [facility] for further management She was assessed with small bowel obstruction likely secondary to incarceration from right inguinal hernia. Surgery was consulted. Inguinal hernia was reduced by Dr. hall at bedside. Diet was gradually restarted and she tolerated it. Her leukocytosis and SHADI resolved with hydration with IV fluids. She was also noted to be in acute respiratory failure and requiring 4L of oxygen likely secondary to acute COPD exacerbation . A CTA chest showed emphysema. She improved on nebs, and steroids and was weaned off oxygen prior to discharge. 35 minutes was spent discharging this patient (2) SHADI (acute kidney injury) Priority: Primary Status: Resolved (3) Leukocytosis Priority: Primary Status: Acute Qualifiers: Leukocytosis type: unspecified Qualified Code(s): D72.829 - Elevated white blood cell count, unspecified (4) Hypokalemia Priority: Primary Status: Resolved (5) Hypercalcemia Priority: Primary Status: Acute (6) Hyponatremia Priority: Primary Status: Acute Hospital course: Ms. Aldridge is a 58 year old female - Time Spent with Patient Total time spent providing and/or coordinating discharge services: - Discharge Medications Prescriptions: New Nicotine Patch [Nicoderm] 7 mg TD DAILY #30 patch.td24 predniSONE [PredniSONE] 40 mg PO DAILY 7 Days #14 tablet Ipratropium/Albuterol Neb [Duoneb] 3 ml IH Q6HR 30 Days #30 vial.neb Continue Multivitamin [Daily Multiple Vitamin] 1 tab PO DAILY #30 tablet Home Medications: Ipratropium/Albuterol Neb [Duoneb] 3 ml IH Q6HR 30 Days #30 vial.neb 07/16/18 [Rx] Multivitamin [Daily Multiple Vitamin] 1 tab PO DAILY #30 tablet 07/16/18 [Rx] Nicotine Patch [Nicoderm] 7 mg TD DAILY #30 patch.td24 07/16/18 [Rx] predniSONE [PredniSONE] 40 mg PO DAILY 7 Days #14 tablet 07/16/18 [Rx] Allergies/Adverse Reactions: Allergy/AdvReac Type Severity Reaction Status Date / Time No Known Allergies Allergy Verified 08/12/17 10:31 Date of admission: 07/13/18 15:34 Primary care physician: PCP NONE Consults: 07/13/18 16:46 Consult to Surgery [CONS] Stat Consulting Provider: Surgery [facility] - [facility] Reason for Consult: Small bowel obstruction Call Completed: Yes 07/13/18 17:31 Consult to Start Up Specialist [CONS] Routine Reason for SW Consult: Patient states she is homeless at the moment. She stays with father and friends. - Constitutional Vitals: Temp Pulse Resp BP Pulse Ox 98.5 F 98 16 135/84 93 07/16/18 07:04 07/16/18 10:09 07/16/18 10:09 07/16/18 10:09 07/16/18 10:09 Exam: General: pleasant, without distress Cardiovascualr: Regular rate and rhythm with no murmur, absent gallops or rubs, absent pedal edema, radial pulses 2 out of 4 Lungs: Clear to auscultation bilaterally, not in respiratory distress Abdomen: Soft nontender, nondistended positive bowel sounds, absent hepatomegaly. Right inguinal hernia, mid abdominal hernia Skin: warm and dry, absent rash, absent open wounds and nodules MSK: absent clubbing, cyanosis, joints without swelling Neuro: Alert oriented 3, no focal deficits Psych: good insight and judgment, - Patient Status Disposition: Home, Self-Care - Discharge Instructions Instructions: Ipratropium/Albuterol (By breathing) Follow Up With: Aura Rod [employer] [Advanced Practice Nurse] - 07/20/18 3:00 pm (Please arrive at 2:45. Thank you)
== END 2018-07-16 15:18 | disposition home or self-care (01) | DRG 393 ==
LOC: SUATTDRO 15:34 → 3ANU 15:34
PROVIDERS: ADMIT Internal Medicine; ATTEND Student in an Organized Health Care Education/Training Program

== ENCOUNTER 2020-11-08 01:41 | Inpatient (IN) ==
[2020-11-08] MEDS ORDERED: Ondansetron 4 MG/2 ML VIAL IVP PRN (04:57)
[2020-11-08] MEDS ORDERED: Melatonin 3 MG TABLET PO PRN (04:57)
[2020-11-08] MEDS ORDERED: Naloxone 0.4 MG/ML INJ IVP PRN (04:57)
[2020-11-08] MEDS ORDERED: *HR* Heparin 5,000 UNIT/ML VIAL IVP PRN ×2 (04:58)
[2020-11-08 05:34] LABS: Basophils % 0.2 %; Eosinophils # 0.2 K/mcL (0.0-0.6); Eosinophils % 0.9 %; Hematocrit 33.6 % (35.3-44.9); Hemoglobin 10.7 g/dL (11.5-15.4); Immature Granulocytes % 0.7 % (0-4); Lymphocytes # 1.8 K/mcL (0.6-4.6); Lymphocytes % 8.3 %; Mean Corpuscular HGB Conc 31.8 g/dL (31.6-35.5); Mean Corpuscular Hemoglobin 30.3 pg (28.0-33.3); Mean Corpuscular Volume 95.2 fL (83.0-100.0); Mean Platelet Volume 10.3 fL (9.4-12.4); Monocytes # 1.4 K/mcL (0.0-1.3); Monocytes % 6.5 %; Neutrophils # 17.6 K/mcL (1.6-8.9); Platelet Count 197 K/mcL (140-400); Red Blood Count 3.53 M/mcL (3.82-4.97); Red Cell Distribution Width 14.6 % (11.5-14.5); Segmented Neutrophils % 83.4 %; White Blood Count 21.1 K/mcL (4.3-11.1)
[2020-11-08 05:40] LABS: INR 1.1; Prothrombin Time 12.9 Seconds (9.4-12.1)
[2020-11-08] MEDS: Heparin 25,000UNIT/250ML 1/2NS 25,000 UNIT/250 ML IV.SOLN IVC SCH (05:45)
[2020-11-08 06:01] LABS: Alanine Aminotransferase 26 Units/L (7-52); Albumin 2.9 g/dL (3.5-5.7); Albumin/Globulin Ratio 1.1 (1.1-2.2); Alkaline Phosphatase 451 Units/L (34-104); Aspartate Amino Transferase 26 Units/L (13-39); BUN/Creatinine Ratio 20 (6-26); Bilirubin,Total 0.4 mg/dL (0.3-1.0); Blood Urea Nitrogen 15 mg/dL (6-20); Carbon Dioxide 30 mEq/L (23-29); Chloride 105 mEq/L (98-107); Globulin 2.6 g/dL (2.4-3.5); Glucose 115 mg/dL (70-105); Magnesium 1.9 mg/dL (1.6-2.6); Osmolality,Calculated 296 (280-300); Phosphorous 3.1 mg/dL (2.7-4.5); Potassium 3.8 mEq/L (3.5-5.1); Sodium 142 mEq/L (136-145); Total Protein 5.5 g/dL (6.4-8.9); Troponin I 0.14 ng/mL (< 0.04); eGFR For African Americans > 60 (> 60); eGFR For Non-African Americans > 60 (> 60)
[2020-11-08] MEDS ORDERED: Perflutren Lipid Microsphere 1.3 ML in 0.9 % Sodium Chloride 8.7 ML IVP PRN (08:00)
[2020-11-08] MEDS: Acetaminophen 325 MG TABLET PO PRN ×2 (08:21→20:34)
[2020-11-08] MEDS: tiZANidine 4 MG TABLET PO SCH ×2 (20:27→20:34)
[2020-11-08] MEDS: BuPROPion SR (12 HR) 150 MG TABLET PO SCH (20:34)
[2020-11-09 03:16] LABS: Basophils % 0.2 %; Eosinophils # 0.4 K/mcL (0.0-0.6); Eosinophils % 1.6 %; Hematocrit 34.8 % (35.3-44.9); Hemoglobin 10.5 g/dL (11.5-15.4); Immature Granulocytes % 0.9 % (0-4); Lymphocytes % 8.9 %; Mean Corpuscular HGB Conc 30.2 g/dL (31.6-35.5); Mean Corpuscular Hemoglobin 29.9 pg (28.0-33.3); Mean Corpuscular Volume 99.1 fL (83.0-100.0); Mean Platelet Volume 10.6 fL (9.4-12.4); Monocytes # 1.5 K/mcL (0.0-1.3); Monocytes % 6.8 %; Neutrophils # 18.3 K/mcL (1.6-8.9); Platelet Count 218 K/mcL (140-400); Red Blood Count 3.51 M/mcL (3.82-4.97); Red Cell Distribution Width 14.6 % (11.5-14.5); Segmented Neutrophils % 81.6 %; White Blood Count 22.4 K/mcL (4.3-11.1)
[2020-11-09 03:37] LABS: BUN/Creatinine Ratio 23 (6-26); Blood Urea Nitrogen 14 mg/dL (6-20); Calcium 8.3 mg/dL (8.6-10.3); Carbon Dioxide 30 mEq/L (23-29); Chloride 104 mEq/L (98-107); Glucose 121 mg/dL (70-105); Osmolality,Calculated 294 (280-300); Sodium 141 mEq/L (136-145); eGFR For African Americans > 60 (> 60); eGFR For Non-African Americans > 60 (> 60)
[2020-11-09] MEDS: tiZANidine 4 MG TABLET PO SCH ×3 (07:18→21:08)
[2020-11-09] MEDS: BuPROPion SR (12 HR) 150 MG TABLET PO SCH ×2 (07:18→21:08)
[2020-11-09] MEDS: Heparin 25,000UNIT/250ML 1/2NS 25,000 UNIT/250 ML IV.SOLN IVC SCH (07:27)
[2020-11-09] MEDS ORDERED: *HR* HYDROmorphone (PF) 1 MG/ML SYRINGE IVP PRN (07:42)
[2020-11-09] MEDS: Morphine Sulfate Oral CONC 10 MG/0.5 ML ORAL.SYG SL PRN ×3 (08:21→21:08)
[2020-11-09] MEDS: Apixaban 5 MG TABLET PO SCH (15:30)
[2020-11-10 03:38] LABS: Basophils % 0.2 %; Eosinophils # 0.3 K/mcL (0.0-0.6); Eosinophils % 1.3 %; Hematocrit 34.8 % (35.3-44.9); Hemoglobin 10.5 g/dL (11.5-15.4); Immature Granulocytes % 0.7 % (0-4); Lymphocytes # 1.6 K/mcL (0.6-4.6); Lymphocytes % 7.8 %; Mean Corpuscular HGB Conc 30.2 g/dL (31.6-35.5); Mean Corpuscular Hemoglobin 29.5 pg (28.0-33.3); Mean Corpuscular Volume 97.8 fL (83.0-100.0); Mean Platelet Volume 10.1 fL (9.4-12.4); Monocytes # 1.4 K/mcL (0.0-1.3); Monocytes % 6.8 %; Neutrophils # 17.1 K/mcL (1.6-8.9); Platelet Count 222 K/mcL (140-400); Red Blood Count 3.56 M/mcL (3.82-4.97); Red Cell Distribution Width 14.6 % (11.5-14.5); Segmented Neutrophils % 83.2 %; White Blood Count 20.6 K/mcL (4.3-11.1)
[2020-11-10] MEDS: Morphine Sulfate Oral CONC 10 MG/0.5 ML ORAL.SYG SL PRN ×2 (03:43→09:29)
[2020-11-10 03:49] LABS: BUN/Creatinine Ratio 21 (6-26); Blood Urea Nitrogen 13 mg/dL (6-20); Calcium 8.5 mg/dL (8.6-10.3); Carbon Dioxide 28 mEq/L (23-29); Chloride 102 mEq/L (98-107); Glucose 114 mg/dL (70-105); Osmolality,Calculated 287 (280-300); Potassium 4.2 mEq/L (3.5-5.1); Sodium 138 mEq/L (136-145); eGFR For African Americans > 60 (> 60); eGFR For Non-African Americans > 60 (> 60)
[2020-11-10 07:42] VITALS: BP 134/89; PULSE 100; TEMP 98.1
[2020-11-10] MEDS: tiZANidine 4 MG TABLET PO SCH (09:22)
[2020-11-10] MEDS: BuPROPion SR (12 HR) 150 MG TABLET PO SCH (09:22)
[2020-11-10] MEDS: Apixaban 5 MG TABLET PO SCH (09:22)
[2020-11-10 11:26] VITALS: O2SAT 89
[2020-11-16] MEDS ORDERED: Apixaban 5 MG TABLET PO SCH (09:00)
== END 2020-11-10 16:20 | disposition home or self-care (01) | DRG 175 ==
LOC: 2NENU → SUATTDRO 04:05
PROVIDERS: ADMIT Family Medicine; ATTEND Internal Medicine

== ENCOUNTER 2020-11-27 23:58 | Inpatient (IN) ==
[2020-11-28] MEDS ORDERED: Naloxone 0.4 MG/ML INJ IVP PRN (03:07)
[2020-11-28] MEDS ORDERED: Melatonin 3 MG TABLET PO PRN (03:07)
[2020-11-28] MEDS ORDERED: Acetaminophen 325 MG TABLET PO PRN (03:07)
[2020-11-28] MEDS ORDERED: 0.9 % Sodium Chloride 1,000 ML IVC SCH (03:15)
[2020-11-28] MEDS ORDERED: *HR* HYDROmorphone (PF) 1 MG/ML SYRINGE IVP ONE (03:37)
[2020-11-28] MEDS: Ondansetron 4 MG/2 ML VIAL IVP PRN ×2 (03:52→12:58)
[2020-11-28] MEDS ORDERED: *HR* HYDROmorphone (PF) 1 MG/ML SYRINGE IVP PRN (04:29)
[2020-11-28] MEDS ORDERED: Potassium Chloride 20 MEQ, Lidocaine 1% 2 ML in 0.9 % Sodium Chloride 250 ML IVPB ONE (05:30)
[2020-11-28] MEDS: *HR* HYDROmorphone (PF) 1 MG/ML SYRINGE IVP PRN ×3 (05:40→22:54)
[2020-11-28 05:42] LABS: Hemoglobin 8.4 g/dL (11.5-15.4); Red Blood Count 2.83 M/mcL (3.82-4.97); White Blood Count 20.4 K/mcL (4.3-11.1)
[2020-11-28 05:43] LABS: Hematocrit 26.8 % (35.3-44.9); Mean Corpuscular HGB Conc 31.3 g/dL (31.6-35.5); Mean Corpuscular Hemoglobin 29.7 pg (28.0-33.3); Mean Corpuscular Volume 94.7 fL (83.0-100.0); Mean Platelet Volume 11.6 fL (9.4-12.4); Platelet Count 169 K/mcL (140-400); Red Cell Distribution Width 15.2 % (11.5-14.5)
[2020-11-28] MEDS ORDERED: Ipratropium/Albuterol Neb 3 ML IH PRN (09:17)
[2020-11-28] MEDS ORDERED: polyethylene glycoL 3350 17 GM POWD.PACK PO SCH (09:30)
[2020-11-28] MEDS: Sennosides/Docusate Sodium TABLET PO SCH ×2 (10:02→21:23)
[2020-11-28] MEDS: Piperacillin/Tazobactam 3.375 GM in 0.9 % Sodium Chloride Mini Bag 100 ML IVPB SCH ×3 (10:04→22:56)
[2020-11-28 13:04] LABS: RBC,Peritoneal Fluid 16000 RBC/mcL
[2020-11-28 13:05] LABS: Appearance of Peritoneal Fl HAZY (Clear)
[2020-11-28 13:12] LABS: Total Protein,Peritoneal Fluid 3.3 g/dL
[2020-11-28 14:07] LABS: Basophils,Peritoneal Fluid 0 %; Eosinophils,Peritoneal Fluid 1 %
[2020-11-28] MEDS: Morphine Sulfate Immed Rel 15 MG TABLET PO PRN (15:34)
[2020-11-28] MEDS ORDERED: Apixaban 5 MG TABLET PO SCH (21:00)
[2020-11-29] MEDS: Morphine Sulfate Immed Rel 15 MG TABLET PO PRN (00:32)
[2020-11-29] MEDS: Ondansetron 4 MG/2 ML VIAL IVP PRN (03:00)
[2020-11-29 03:06] VITALS: TEMP 98
[2020-11-29 05:31] VITALS: BP 129/78; PULSE 115; O2SAT 97
[2020-11-29] MEDS ORDERED: Isovue-370 500 ML BOTTLE IVP ONE (05:50)
[2020-11-29] MEDS ORDERED: Perflutren Lipid Microsphere 1.3 ML in 0.9 % Sodium Chloride 8.7 ML IVP PRN (06:08)
[2020-11-29 06:19] LABS: INR 1.7; Prothrombin Time 19.6 Seconds (9.4-12.1)
[2020-11-29 06:22] LABS: Activated Partial Thrombo Time 27.7 Seconds (26.0-36.0)
[2020-11-29 06:35] LABS: Albumin 2.9 g/dL (3.5-5.7); Calcium 8.4 mg/dL (8.6-10.3); Magnesium 1.4 mg/dL (1.6-2.6); Potassium 3.4 mEq/L (3.5-5.1); Total Protein 5.9 g/dL (6.4-8.9); Troponin I 0.19 ng/mL (< 0.04)
[2020-11-29 06:36] LABS: Basophils # 0.1 K/mcL (0.0-0.2); Basophils % 0.2 %; Eosinophils # 0.1 K/mcL (0.0-0.6); Eosinophils % 0.2 %; Hematocrit 30.9 % (35.3-44.9); Immature Granulocytes % 0.8 % (0-4); Lymphocytes # 1.6 K/mcL (0.6-4.6); Lymphocytes % 6.5 %; Mean Corpuscular HGB Conc 32.4 g/dL (31.6-35.5); Mean Corpuscular Hemoglobin 30.6 pg (28.0-33.3); Mean Corpuscular Volume 94.5 fL (83.0-100.0); Mean Platelet Volume 11.3 fL (9.4-12.4); Monocytes # 2.1 K/mcL (0.0-1.3); Monocytes % 8.3 %; Neutrophils # 21.3 K/mcL (1.6-8.9); Platelet Count 177 K/mcL (140-400); Red Blood Count 3.27 M/mcL (3.82-4.97); Red Cell Distribution Width 15.2 % (11.5-14.5); White Blood Count 25.3 K/mcL (4.3-11.1)
[2020-11-29 06:38] LABS: Hypochromasia Present (Not Present); Platelet Estimate Normal (Normal)
[2020-11-29] MEDS ORDERED: Multivit/Ca/Min/Fe/FA 1 TAB TABLET PO SCH (09:00)
[2020-11-29] MEDS ORDERED: BuPROPion SR (12 HR) 150 MG TABLET PO SCH (09:00)
[2020-11-30 05:35] LABS: Fluid Source for Albumin ASCITES
== END 2020-11-29 07:52 | disposition short-term general hospital (02) | DRG 871 ==
LOC: 3BNU → SUATTDRO 11-28 02:45
PROVIDERS: ADMIT Student in an Organized Health Care Education/Training Program; ATTEND Pharmacist